=== PATIENT | female | born 1995 | race Two or more races ===

== ENCOUNTER 2020-10-31 19:23 | Emergency (ER) | payer OTHER ==
[~2020-10-31] VITALS: Ht 162.6 cm; Wt 64.0 kg
== END 2020-10-31 23:50 | disposition home or self-care (01) ==
LOC: ER 19:23
DX: O26.892 Other specified pregnancy related conditions, second trimester (principal); R10.2 Pelvic and perineal pain; Z3A.17 17 weeks gestation of pregnancy

== ENCOUNTER 2021-01-02 | Outpatient (CLI) | payer OTHER ==
[2021-01-02] MEDS ORDERED: PRENATAL TABLE1 EAC1 PO (00:47)
== END 2021-01-02 15:46 | disposition home or self-care (01) ==
LOC: OBS/DEL
PROVIDERS: ATTEND Obstetrics & Gynecology
DX: O26.892 Other specified pregnancy related conditions, second trimester (principal); N20.0 Calculus of kidney; Z3A.25 25 weeks gestation of pregnancy

== ENCOUNTER 2021-04-02 02:07 | Inpatient (IN) | payer OTHER ==
[~2021-04-02] VITALS: Ht 162.6 cm; Wt 73.0 kg
[~2021-04-02 02:07] MED LIST: PRENATAL TABLE1 EAC1 PO
== END 2021-04-04 13:54 | disposition home or self-care (01) | DRG 807 ==
LOC: OBS/DEL 02:07 → LDR 05:26 → OBS/DEL 05:26 → OB/GYN 05:26
PROVIDERS: ADMIT Obstetrics & Gynecology; ATTEND Obstetrics & Gynecology
PROC: 10E0XZZ Delivery of Products of Conception, External Approach (ICD-10-PCS; principal; 2021-04-02)
PROC: 0KQM0ZZ Repair Perineum Muscle, Open Approach (ICD-10-PCS; 2021-04-02)
PROC: 10907ZC Drainage of Amniotic Fluid, Therapeutic from Products of Conception, Via Natural or Artificial Opening (ICD-10-PCS; 2021-04-02)
PROC: 4A1HXFZ Monitoring of Products of Conception, Cardiac Rhythm, External Approach (ICD-10-PCS; 2021-04-02)
DX: O70.1 Second degree perineal laceration during delivery (principal); Z37.0 Single live birth; Z3A.39 39 weeks gestation of pregnancy; Z20.822 Contact with and (suspected) exposure to COVID-19